=== PATIENT | male | born 1965 | race Hispanic/Latino ===

== ENCOUNTER 2018-02-25 21:44 | Emergency (ER) | payer BC, OTHER ==
[~2018-02-25] VITALS: Ht 160 cm; Wt 72.6 kg
[~2018-02-25 21:44] MED LIST: GLYBURIDE5 MG PO; IBUPROFEN600 MG PO; LISINOPRIL20 MG PO; PRAVASTATIN SOD20 MG PO
[2018-02-26] MEDS ORDERED: DIAZEPAM5 MG PO (02:58)
[2018-02-26] MEDS ORDERED: ONDANSETRON ODT8 MG PO (02:58)
[2018-02-26] MEDS ORDERED: ACID CONTROLLER20 MG PO (02:58)
== END 2018-02-26 03:14 | disposition home or self-care (01) ==
LOC: ED 21:44
DX: K29.70 Gastritis, unspecified, without bleeding (principal); K20.9 Esophagitis, unspecified; K70.10 Alcoholic hepatitis without ascites; I10 Essential (primary) hypertension; E11.9 Type 2 diabetes mellitus without complications; E78.00 Pure hypercholesterolemia, unspecified; F17.200 Nicotine dependence, unspecified, uncomplicated; Z79.899 Other long term (current) drug therapy
CPT/HCPCS: 80053; 81001; 83690; 85025; 96374; 96375; 96376; 99284; J2060; J2405; J7030

== ENCOUNTER 2019-09-25 04:12 | Inpatient (IN) | payer BC ==
[~2019-09-25] VITALS: Ht 160 cm; Wt 65.8 kg
[~2019-09-25 04:12] MED LIST changes: +ACID CONTROLLER20 MG PO; +DIAZEPAM5 MG PO; +ONDANSETRON ODT8 MG PO
--- NOTE | 2019-09-28 17:08 | EKG ---
[facility] [address] [facility] [place], [place] [address] Signed Sinus tachycardia Otherwise normal ECG Confirmed by MIGUEL ZAMORA MD ([id number]) on 09/28/2019 5:08:09 PM Electronically Signed By: MIGUEL ZAMORA MD 09/28/19 1708 PATIENT NAME: MAYDA DUNCANSELMA Electrocardiogram DATE OF : 67 PHYSICIAN: MIGUEL ZAMORA MD REPORT #: [id number] REPORT IS CONFIDENTIAL AND NOT TO BE RELEASED WITHOUT AUTHORIZATION
== END 2019-09-29 21:09 | disposition short-term general hospital (02) | DRG 439 ==
LOC: ED 04:12 → MS 04:13
PROVIDERS: ADMIT Internal Medicine
PROC: 30233N1 Transfusion of Nonautologous Red Blood Cells into Peripheral Vein, Percutaneous Approach (ICD-10-PCS; principal; 2019-09-29)
DX: K85.21 Alcohol induced acute pancreatitis with uninfected necrosis (principal); D62 Acute posthemorrhagic anemia; E87.1 Hypo-osmolality and hyponatremia; N17.9 Acute kidney failure, unspecified; K56.7 Ileus, unspecified; E78.1 Pure hyperglyceridemia; D69.6 Thrombocytopenia, unspecified; K70.10 Alcoholic hepatitis without ascites; F10.20 Alcohol dependence, uncomplicated; E86.0 Dehydration; E11.65 Type 2 diabetes mellitus with hyperglycemia; I10 Essential (primary) hypertension; E78.5 Hyperlipidemia, unspecified; F17.210 Nicotine dependence, cigarettes, uncomplicated; Z79.899 Other long term (current) drug therapy
CPT/HCPCS: 36415; 71045; 74018; 74177; 76705; 80048; 80053; 80061; 80076; 81001; 82550; 82570; 83036; 83690; 83735; 84300; 85018; 85025; 85610; 86850; 86900; 86901; 86920; 93005; 93010; 96361; 96375; 99285-25; C9113; J0780; J1170; J1650; J1815; J2270; J2405; J3480; J7030; J7060; J7120; J7121; Q9967